=== PATIENT | female | born 1985 | race Caucasian/White ===

== ENCOUNTER 2021-10-16 18:22 | Emergency (ER) | payer OTHER ==
[2021-10-16 19:19] VITALS: BP 159/102; PULSE 69; TEMP 97.9; BMI 34.4
== END 2021-10-16 19:58 | disposition home or self-care (01) ==
LOC: JER 18:22 → JERFT 18:22
DX: S01.511A Laceration without foreign body of lip, initial encounter (principal)
CPT/HCPCS: 99283-25